=== PATIENT | female | born 1980 | race Caucasian/White ===

== ENCOUNTER → 2019-10-17 09:25 | Outpatient (CLI) | payer BC, SELFPAY ==
[2018-03-14 16:41] VITALS: BMI 26.4
[2019-10-17 11:35] LABS: HIV - WCH Non-Reactive (Nonreactive); Hepatitis B Surface Antigen Non-Reactive (Nonreactive); Hepatitis C Antibody Non-Reactive (Nonreactive)
[2019-10-19 03:07] LABS: Chlamydia By Nucleic Acid AMP Negative (Negative)
[2019-10-19 07:33] LABS: Gonococcus By Nucleic Acid AMP Negative (Negative)
[2019-10-21 21:39] LABS: HPV APTIMA, High Risk Negative (Negative)
[2019-10-24 05:27] LABS: Rapid Plasmin Reagin (RPR) NONREACTIVE (NONREACTIVE)
== END ==
PROVIDERS: Visit Provider Obstetrics & Gynecology
DX: Z11.3 Encounter for screening for infections with a predominantly sexual mode of transmission (principal)
CPT/HCPCS: 36415; 86592; 86703; 86803; 87340; 87491; 87591; 87624; 88175; G0145

== ENCOUNTER 2020-07-30 08:02 | Emergency (ER) | payer BC, SELFPAY ==
[2018-03-14 16:41] VITALS: BMI 26.4
[2020-07-30 08:02] VITALS: BP 150/90; PULSE 104; RESP 16; TEMP 36.4; O2SAT 98; BMI 23.3
--- NOTE | 2020-07-30 08:08 | CT_ITS ---
STUDY: CT CERVICAL SPINE WITHOUT CONTRAST REASON FOR EXAM: Female, 39 years old. Left shoulder and left cervical pain. RADIATION DOSAGE (If Supplied By Facility): CTDIvol = ( 15.82 ) mGy, DLP = ( 317.13 ) mGycm TECHNIQUE: High resolution transaxial imaging was performed without contrast material. Sagittal and coronal images were reconstructed. Individualized dose optimization techniques were used for this CT. COMPARISON: None FINDINGS: Normal craniovertebral junction. Normal anterior atlantoaxial articulation. Normal odontoid process. There is straightening of the normal cervical lordosis. Normal vertebral bodies and posterior osseous elements. C2-3: Normal endplates. Normal disc height and morphology. Normal central canal and intervertebral neuroforamina. C3-4: Normal endplates. Normal disc height and morphology. Normal central canal and intervertebral neuroforamina. C4-5: Normal endplates. Normal disc height and morphology. Normal central canal and intervertebral neuroforamina. C5-6: Normal endplates. Normal disc height and morphology. Normal central canal and intervertebral neuroforamina. C6-7: Normal endplates. Normal disc height and morphology. Normal central canal and intervertebral neuroforamina. C7-T1: Normal endplates. Normal disc height and morphology. Normal central canal and intervertebral neuroforamina. Normal visualized soft tissue structures. CT/Spine Cervical without Contras IMPRESSION: Normal unenhanced CT examination of the cervical spine. Electronically Signed: Jhon Barrios MD at 8:46 EDT , Service support ,
--- NOTE | 2020-07-30 08:09 | EDS_ITS ---
HPI History of Present Illness Chief Complaint: Upper Extremity Injury Informant: patient Onset/Context/Timing Onset: Today Context: Gradual Onset Timing: Continuous Quality of Pain: Burning and Stabbing Current Severity: Moderate Maximum Severity: Severe Associated Symptoms Associated Symptoms: Positive for Parasthesia; Negative for Weakness and Loss of Funtion Narrative Narrative: The patient is an otherwise healthy 39-year-old female presents to the emergency department with left-sided neck and shoulder pain. The patient states that she has had pain in this area for the past few days. She states she just felt like her neck had a crack. She states when she woke up this morning, she had a burning pain in the posterior left shoulder that goes down the arm. She denies any weakness. She states it hurts to move and twist. She denies any trauma. She has not found anything that improves the symptoms. She is not had visual change, vertiginous symptoms, trouble with speech, or change in gait. PFSH PFSH Home Medications cyclobenzaprine 10 mg PO TID PRN #20 tablet 07/30/20 [Rx Last Taken Unknown] hydrocodone-acetaminophen 1 tab PO Q6H PRN PRN 3 Days #10 tablet 07/30/20 [Rx Last Taken Unknown] methylprednisolone 4 mg PO UD #1 box 07/30/20 [Rx Last Taken Unknown] Allergy/AdvReac Type Severity Reaction Status Date / Time venom-honey bee Allergy Other Verified 07/30/20 08:04 [bee venom (honey bee)] Social History Smoking Status: Current every day smoker tobacco type: cigarettes alcohol intake: current ROS ROS ED Constitutional Constitutional ED: Denies chills or fever(s) Eyes Eyes: Denies blurry vision or change in vision ENT ENT ED: Denies ear pain or sore throat Cardiovascular Cardiovascular: Denies chest pain or palpitations Respiratory/Chest Respiratory/Chest: Denies cough, dyspnea or dyspnea on exertion Gastrointestinal Gastrointestinal: Denies abdominal pain, nausea or vomiting Genitourinary Genitourinary ED: Denies dysuria or urinary frequency Musculoskeletal Musculoskeletal: Reports neck pain; Denies arthralgias or myalgias Integumentary Denies rash Neurologic Neurologic: Reports paresthesias; Denies headache(s) Psychiatric Psychiatric: Denies anxiety or depression Endocrine Endocrinology: Denies polydipsia or polyuria Allergic/Immunologic Allergic/Immunologic ED: Denies urticaria EXAM Physical Exam Const Vital Signs: 07/30/20 08:02 Temperature 97.5 F L Temperature Source Temporal Pulse Rate 104 H Respiratory Rate 16 Blood Pressure 150/90 H Blood Pressure Mean 110 Pulse Ox 98 Oxygen Delivery Method Room Air Positive well nourished and well developed General Appearance ED: well developed HEENT Reports normocephalic, head/scalp atraumatic and moist mucous membranes normocephalic and atraumatic Eyes PERRL and EOMs intact bilaterally Neck full ROM, no lymphadenopathy and supple Neck Narrative: Tenderness over the left lateral paraspinal muscular. Tendernes s into the rhomboid. Normal pulses. Normal reflexes of the upper extremity. General: tenderness Chest Wall inspection of chest normal Resp normal respiratory effort and clear to auscultation bilaterally Cardio regular rate, regular rhythm and no murmurs GI normal to inspection, nondistended, normoactive bowel sounds Palpation: Negative for tender, guarding or rebound tenderness present Back/Spine no CVA tenderness Cervical Spine: Negative for cervical spine tenderness Thoracic Spine / Upper Back: Negative for thoracic spinal tenderness Extremity normal to inspection General Extremety ED: Negative for tenderness Neuro oriented x3 and CN's II-XII intact bilaterally Neuro Narrative: No focal deficits appreciated. Sensorium / Orientation: alert Psych mental status grossly normal Skin no rashes or lesions noted, no wounds and skin turgor normal MDM MDM MDM Narrative Medical decision making narrative: The patient presents with radicular type pain from the left posterior neck down to the shoulder. She has no weakness. She has normal reflexes and normal pulses. I did obtain CT imaging. There is no fracture dislocation. The patient was treated with IM medications with some improvement. At this point, I do feel that she is safe outpatient therapy. My suspicion is that she likely has a pinched nerve causing radicular symptoms down the arm. I am going to treat her with Medrol, short course of analgesics, and antispasmodics. She will be given outpatient spine surgery follow-up. She is comfortable with this plan of care. Impression Left cervical radiculopathy Discharge Plan Triage Chief Complaint: Upper Extremity Injury ED Provider: Phoenix Contreras Dx/Rx/DC Orders Clinical Impression: Cervical radicular pain Instructions: ED Radiculopathy, Cervical Prescriptions: New cyclobenzaprine [cyclobenzaprine] 10 MG tablet 10 mg PO TID PRN (Reason: Muscle Spasm) Qty: 20 RF: 0 hydrocodone-acetaminophen [hydrocodone-acetaminophen] 1 TABLET tablet 1 tab PO Q6H PRN PRN (Reason: Pain) 3 Days Qty: 10 RF: 0 methylprednisolone [methylprednisolone] 4 MG tablets,dose pack 4 mg PO UD Qty: 1 RF: 0 Primary Care Provider: Care Physician,No Primary Referrals: Mg Boykin DO [STAFF PHYSICIAN] - 3-5 Days Care Physician,No Primary [Primary Care Provider] -
[2020-07-30] MEDS: Ketorolac 60 MG/2 ML Vial IM (08:16)
[2020-07-30] MEDS: Morphine 4 MG/ML Syringe IM (08:16)
[2020-07-30] MEDS: Orphenadrine 60 MG/2 ML Ampul IM (08:16)
[2020-07-30 08:59] VITALS: PULSE 77; RESP 15; O2SAT 100
--- NOTE | 2020-07-30 09:00 | ED.RN ---
PT WAS OBSERVED FOR SHOT TIME FOR GREATER THAN 15 MINUTES NO REACTION NOTED BY THIS RN, PT D/C.
== END 2020-07-30 09:01 | disposition home or self-care (01) ==
PROVIDERS: Emergency Provider Emergency Medicine
DX: M54.12 Radiculopathy, cervical region (principal); F17.210 Nicotine dependence, cigarettes, uncomplicated; Z79.52 Long term (current) use of systemic steroids; Z79.899 Other long term (current) drug therapy
CPT/HCPCS: 72125; 96372; 99282

== ENCOUNTER → 2020-10-12 16:05 | Outpatient (CLI) | payer BC, SELFPAY ==
[2020-08-10 08:45] VITALS: BMI 23.3
--- NOTE | 2020-10-12 16:06 | MRI_ITS ---
STUDY: MRI CERVICAL SPINE WITHOUT CONTRAST REASON FOR EXAM: Female, 39 years old. pain neck and left shoulder/arm TECHNIQUE: Standardized fat and water weighted pulse sequences were obtained in the sagittal and axial planes. COMPARISON: CT scan of 07/30/2020 and plain film study from 08/10/2020 FINDINGS: Normal foramen magnum and brainstem-cervical cord junction. Normal craniovertebral junction. Normal anterior atlantoaxial articulation. Normal odontoid process. There is reversal of the normal cervical lordosis. Normal vertebral bodies and posterior osseous elements. C2-3: Normal endplates. Normal disc height, signal and morphology. Normal central canal and intervertebral neural foramina. C3-4: Normal endplates. Normal disc height, signal and morphology. Normal central canal and intervertebral neural foramina. C4-5: Left paracentral disc herniation at C4-5 impinging on the left C5 nerve root. Normal intervertebral neural foramina. C5-6: Normal endplates. Normal disc height, signal and morphology. Normal central canal and intervertebral neural foramina. C6-7: Normal endplates. Normal disc height, signal and morphology. Normal central canal and intervertebral neural foramina. C7-T1: Normal endplates. Normal disc height, signal and morphology. Normal central canal and intervertebral neural foramina. Normal cervical cord. Normal visualized soft tissue structures. MRI/Spine Cervical (Routine) IMPRESSION: Left paracentral disc herniation at C4-5 impinging on the left C5 nerve root. Electronically Signed: Linda Winslow MD at 7:45 EDT Tel , Service support ,
== END ==
PROVIDERS: Referring Provider Orthopaedic Surgery; Visit Provider Orthopaedic Surgery
DX: M50.20 Other cervical disc displacement, unspecified cervical region (principal); M54.12 Radiculopathy, cervical region
CPT/HCPCS: 72141

== ENCOUNTER 2023-10-16 14:05 | Emergency (ER) | payer BC, SELFPAY ==
[2023-10-16 14:05] VITALS: BP 124/77; PULSE 81; RESP 16; TEMP 36.8; O2SAT 100; BMI 25.0
== END 2023-10-16 18:47 | disposition left against medical advice (07) ==
LOC: ED 19:05
PROVIDERS: PCP Family Medicine
DX: Z53.21 Procedure and treatment not carried out due to patient leaving prior to being seen by health care provider (principal)

== ENCOUNTER 2023-10-17 07:30 | Emergency (ER) | payer BC, SELFPAY ==
[2023-10-17 07:31] VITALS: BP 148/83; PULSE 91; RESP 16; TEMP 36.5; O2SAT 98
[2023-10-17 07:34] VITALS: BMI 24.7
--- NOTE | 2023-10-17 07:58 | EDS_ITS ---
HPI History of Present Illness Chief Complaint: Laceration [facility] Medical History (Updated 10/17/23 @ 08:[address] Cedric Hedrick, DO) Foreign body finger Paronychia of right middle finger Acute conjunctivitis, left eye No active medical problems Home Medications ?Medication ?Instructions ?Recorded ?Last Taken ?Type doxycycline monohydrate 100 mg 100 mg PO DAILY 10/17/23 Unknown History tablet (Avidoxy) Allergy/AdvReac Type Severity Reaction Status Date / Time venom-honey bee (bee venom Allergy Other Verified 10/16/23 14:09 (honey bee)) Surgical History Hx of foot surgery Hx of appendectomy Social History Smoking Status: Current every day smoker tobacco type: cigarettes alcohol intake: current EXAM Physical Exam Const Vital Signs: 10/17/23 07:31 Temperature 97.7 F L Temperature Source Temporal Pulse Rate 91 Respiratory Rate 16 Blood Pressure 148/83 H Blood Pressure Mean 104 Pulse Ox 98 Oxygen Delivery Method Room Air MDM MDM MDM Narrative Medical decision making narrative: HISTORY OF PRESENT ILLNESS: 42 F here with laceration. 42-year-old female presents with concern for infection of the right middle finger after having surgery. Notes she removed her dressing on Monday (3 days ago) she noted the wound was open. She know she called her surgeon who told her to come to the ED to have a resutured. She denies fever, vomiting, chills. Denies drainage, redness. Notes the wound looks essentially the same as before she had the surgery. She is very upset because this been going on since June. She notes she has doxycycline but has not started taking it because her surgeon initially told her not to take it and then this morning told her to take it. She denies loss of sensation, movement,. Denies any immunocompromising state such as diabetes, renal failure, liver failure, chemotherapy. REVIEW OF SYSTEMS: Pertinent positives: laceration Pertinent negatives: fever, chills, PHYSICAL EXAM: Nursing triage notes reviewed, Vital signs reviewed Constitutional: please see mdm Neuro: Intact 5/5 strength with ok sign (median), intact finger abduction (ulnar) intact wrist extension (radial n). Intact sensation in the radial, ulnar, and median nerve distributions. Skin: Chronic appearing ulceration noted to the palmar aspect of the third digit MEDICAL DECISION MAKING: Chief Complaint: Laceration possible postop infection External records reviewed: Reviewed [facility]. No notes noted including sink from hand surgery Factors affecting care: Chronic paronychia MDM Narrative: Patient was hemodynamically stable, afebrile and nontoxic-appearing. Exam with palmar ulceration and chronic appearing wound to the distal third digit. Right upper extremity is neurovascularly intact. No redness no purulence no warmth. No signs of active infection. There is no obvious indication for suture repair. No clinical evidence of active infection. Wound appears chronic. Patient is prescribed doxycycline encouraged her to continue to take this. Encouraged her to follow with her surgeon. Wound care was provided. Strict return precautions were discussed. The patient and/or family, caregivers express understanding. The patient and/or family, caregivers agrees with the plan. Shared decision making: I will have a discussion with the patient and or visitors regarding risk/benefits of further testing or admission. They will be made aware of of the risk/benefits inherent in this decision they will be given the opportunity to voice understanding. Total critical care time today provided was at least 0 minutes. This excludes separately billable procedures. Critical care time (if documented) is secondary to the patient having high probability of clinically significant/life threatening deterioration in the patient's condition which required my urgent intervention. Impression: 1. Wound dehiscence 2. Chronic wound of the third digit Dispo: Discharge home This note was generated with [employer] dictation software. It may contain incorrect words, spelling, and punctuation that were not noted in review of the chart prior to signing. Discharge Plan Triage Chief Complaint: Laceration ED Provider: Cedric Hedrick Dx/Rx/DC Orders Clinical Impression: Chronic wound Instructions: Changing Dressing Dc Prescriptions: No Action doxycycline monohydrate [Avidoxy] 100 mg tablet 100 mg PO DAILY Primary Care Provider: Jona Oswald Referrals: Jona Oswald MD [Primary Care Provider] - Activity Restrictions/Additional Instructions: Thank you for trusting us with your care today! Please take Tylenol (2 pills, 650 mg), ibuprofen (2 pills, 400 mg) every 6 hours as needed for pain and fever control. Please return to the emergency department if your symptoms change or worsen. Please follow with your Surgery for further outpatient evaluation and management. Print Language: Vietnamese Disposition Disposition: Home, Self Care
== END 2023-10-17 08:50 | disposition home or self-care (01) ==
PROVIDERS: Emergency Provider Emergency Medicine; PCP Family Medicine; Visit Provider Emergency Medicine
DX: T81.31XA Disruption of external operation (surgical) wound, not elsewhere classified, initial encounter (principal); F17.210 Nicotine dependence, cigarettes, uncomplicated; L03.011 Cellulitis of right finger; Y83.9 Surgical procedure, unspecified as the cause of abnormal reaction of the patient, or of later complication, without mention of misadventure at the time of the procedure
CPT/HCPCS: 99282

== ENCOUNTER → 2024-03-13 | Outpatient (CLI) | payer BC, SELFPAY ==
[2024-03-16 13:07] LABS: HPV APTIMA, High Risk Negative (Negative)
== END | disposition home or self-care (01) ==
LOC: LABSPEC 10:35
PROVIDERS: PCP Family Medicine; Referring Provider Nurse Practitioner Women's Health; Visit Provider Nurse Practitioner Women's Health
DX: Z12.4 Encounter for screening for malignant neoplasm of cervix (principal)

== ENCOUNTER → 2024-03-18 | Outpatient (CLI) | payer BC, SELFPAY ==
--- NOTE | 2024-03-18 14:17 | US_ITS ---
EXAM: US PELVIS TRANSABDOMINAL AND TRANSVAGINAL, COMPLETE CLINICAL INDICATION: enlarged uterus -- prominent anteriorly TECHNIQUE: Transabdominal and transvaginal pelvic ultrasound was performed with grayscale and color Doppler imaging. Transvaginal imaging was used for better evaluation of the endometrium and adnexa. COMPARISON: CT abdomen and pelvis, 11/22/2010 FINDINGS: UTERUS/CERVIX: Intramural fibroid measuring 9.2 cm. Intramural fibroid measuring 1.9 cm. The endometrium measures 5 mm. Anteverted. The uterus measures 10.2 x 9.2 x 4.3 cm. RIGHT OVARY: No significant abnormality. Blood flow is present in the right ovary. The right ovary measures 2.8 x 2.3 x 2.3 cm. LEFT OVARY: No significant abnormality. Blood flow is present in the left ovary. The left ovary measures 4.4 x 3.1 x 1.7 cm. FREE FLUID: None. BLADDER: Normal as visualized. Wall is normal thickness for degree of distention. US/Pelvic w/ Transvaginal IMPRESSION: Fibroid uterus. The largest measures 9.2 cm. Electronically Signed: Chaka Johnson DO at 22:50 EST ,
--- NOTE | 2024-03-18 14:17 | BI_ITS ---
MAMMOGRAPHY - BILATERAL SCREENING REASON FOR EXAM: Female, 43 years old. Routine annual screening examination. PERTINENT HISTORY: Non-contributory. TECHNIQUE: Digital bilateral breast hira (3D mammographic acquisition) in the CC and MLO projections. 2-D mediolateral oblique (MLO) and craniocaudad (CC) views of both breasts were obtained. CAD: Full Field Digital Mammography with Computer Added Detection was performed. COMPARISON: None. Baseline examination. FINDINGS: Breast Composition: The breasts are extremely dense, which lowers the sensitivity of mammography. There are no dominant masses or suspicious calcifications. No other significant abnormalities are identified. BI/SCRN MAMM (CAD)W/HIRA BILAT IMPRESSION: Negative screening mammogram. Yearly followup mammogram recommended. (A) ASSESSMENT CATEGORY: BIRADS Category 1: Negative. A letter regarding these results will be sent to the patient by the facility within 30 days. Approximately 10% of breast cancers are not detected by mammography. A normal mammogram should not delay biopsy of a clinically suspicious abnormality. [id number] Electronically Signed: Jhon Barrios MD at 8:59 EST ,
== END | disposition home or self-care (01) ==
PROVIDERS: PCP Family Medicine; Referring Provider Nurse Practitioner Women's Health; Visit Provider Nurse Practitioner Women's Health
DX: Z12.31 Encounter for screening mammogram for malignant neoplasm of breast (principal); N85.2 Hypertrophy of uterus
CPT/HCPCS: 76830; 76856; 77063; 77067

== ENCOUNTER → 2024-03-22 | Outpatient (CLI) | payer BC, SELFPAY ==
--- NOTE | 2024-03-22 16:30 | EMB_PTH ---
PATIENT: GRECIA RENEE LOC: [facility] U#:[id number] AGE/SX: 43/F ROOM: RE03/22/[address]: Dr. Tawana Cyr DO : 1980 BED: DIS: 03/22/2024 SPEC #: [id number] RECD: 03/22/24 17:10 STATUS: ADRIANE KELSEY #: [id number] RICCO: 03/22/24 16:[address]: Tawana Cyr DEPT: SURGICAL PATHOLOGY RECD BY: Tracie Poon ENTERED: 03/25/24 09:56 SP TYPE: ENDOM BX/C YVONNE DR: Dr. Jona Oswald MD Tissues: Endometrium, NOS Procedures: Surgery Specimen Level IV HEADER OPERATION: Endometrial biopsy PRE-OP DIAGNOSIS: Menorrhagia TISSUE SUBMITTED: Endometrial lining MICROSCOPIC DIAGNOSIS Endometrial biopsy: Secretory endometrium with extensive glandular and stromal breakdown. mr 03/26/2024 MICROSCOPIC DESCRIPTION Slides are reviewed. GROSS DESCRIPTION Received is one container labeled with the patient's name and not further designated. The specimen consists of multiple irregular fragments of mcguire mucoid tissue mixed with hemorrhagic tissue that in aggregate measure 3 x 2.5 x 0.1 cm. The specimen is totally submitted in one cassette. 03/25/2024 TC:5 CPT:95393
== END | disposition home or self-care (01) ==
LOC: BWCLAB 11:32
PROVIDERS: PCP Family Medicine; Referring Provider Obstetrics & Gynecology; Visit Provider Obstetrics & Gynecology
DX: N92.0 Excessive and frequent menstruation with regular cycle (principal)
CPT/HCPCS: 36415; 84443; 88305

== ENCOUNTER 2024-05-21 05:26 | Day surgery (SDC) | payer BC, SELFPAY ==
--- NOTE | 2024-05-13 06:53 | EKG12_ITS ---
Test Reason : PREOP Blood Pressure : */* mmHG Vent. Rate : 59 BPM Atrial Rate : 59 BPM P-R Int : 120 ms QRS Dur : 82 ms QT Int : 400 ms P-R-T Axes : 44 78 52 degrees QTcB Int : 396 ms Sinus bradycardia Otherwise normal ECG Confirmed by ADRIÁN TAYLOR, QUINN ([id number]), rewrite editor OLGA REY ([id number]) on 05/13/2024 1:42:05 PM Referred By: Tawana Cyr Confirmed By: QUINN SAMPSON MD
[2024-05-13 07:24] LABS: Hematocrit 41.3 % (37-47); Hemoglobin 13.7 g/dL (12.0-15.0); Mean Corp Hgb Conc 33.2 g/dL (32-36); Mean Corpuscular Hgb 32.7 pg (27.0-32.0); Mean Corpuscular Volume 98.6 fL (81-99); Platelet Count 226 K/mm3 (150-450); RBC Distribution Width CV 13.1 % (11.6-14.6); Red Blood Count 4.19 M/mm3 (4.2-5.4); White Blood Count 7.8 K/mm3 (4.4-11.0)
[2024-05-13 13:29] LABS: Magnesium 2.2 mg/dL (1.5-2.2)
[2024-05-21] VITALS (10 sets, daily range): BP systolic 116–128; BP diastolic 54–85; PULSE 67–90; RESP 15–18; TEMP 36.3–36.6; O2SAT 100; BMI 23.1
[2024-05-21 06:00] LABS: Internal QC Validated? YES +Cl - CLEAR BKGD; Pregnancy, Urine Negative Negative
[2024-05-21] MEDS: Magnesium 1 GM over 15 mins IV (06:06)
[2024-05-21] MEDS: Celecoxib 200 MG Capsule 400 MG PO (06:26)
[2024-05-21] MEDS: Acetaminophen 500 MG Tablet 1000 MG PO (06:26)
[2024-05-21] MEDS: Gabapentin 600 MG Tablet PO (06:27)
[2024-05-21] MEDS: Scopolamine 1mg/72hr Patch 1 PATCH TD (06:28)
[2024-05-21] MEDS: Phenazopyridine 95 MG Tablet 190 MG PO (06:29)
[2024-05-21] MEDS: 0.9% Normal Saline (1000mL) 1,000 ML 15 ML IV (06:35)
--- NOTE | 2024-05-21 06:37 | PCM.PRE.AN2 ---
ASA Classification* ASA Classification ASA Classification: 2 Assessment & Plan Anesthesia* Anesthesia Assessment Anesthesia Assessment: Discussed sedation and/or anesthesia options, risks, benefits, and alternatives with patient/parents/legal guardian/POA. Questions invited. The patient/parents/legal guardian/POA seems to understand and agrees to proceed with anesthesia plan. Reviewed the physical assessment, medical history, allergy history and patient home medications list prior to surgery/procedure/anesthetic and documented any changes. Performed airway and anesthesia risk assessments. Anesthesia Type Anesthesia Type: General History Source History Obtained from:: Patient and Chart Anesthesia Focused Assessment* Temperature: 97.3 F Pulse Rate: 67 Blood Pressure: 117/84 Respiratory Rate: 18 Pulse Ox: 100 Oxygen Delivery Method: Room Air Airway Assessment Mouth opens: >3 cm Mallampati Score: III Teeth Condition: Intact Neck Range of motion (ROM): Full ROM Focused Labs Anesthesia Preop lab: CBC WBC 7.8 K/mm3 (4.4-11.0) 05/13/24 07:15 05/13/24 RBC 4.19 M/mm3 (4.2-5.4) L 05/13/24 07:15 05/13/24 Hgb 13.7 g/dL (12.0-15.0) 05/13/24 07:15 05/13/24 Hct 41.3 % (37-47) 05/13/24 07:15 05/13/24 Plt Count 226 K/mm3 (150-450) 05/13/24 07:15 05/13/24 CHEMISTRY Magnesium 2.2 mg/dL (1.5-2.2) 05/13/24 07:15 05/13/24 TSH 1.360 uIU/mL (0.358-3.740) 03/22/24 11:32 03/22/24 COAG Urine Test Negative Negative 05/21/24 05:42 05/21/24 Pre-Assessment Diagnosis/Proposed Procedure Planned Operative Procedure(s): (B) Lap Robotic Hysterectomy Kerwin Salping, Cystoscopy Anesthesia History Anesthesia History - prepress specialist: Anesthesia History - prepress specialist Hx Hospitalization No 05/07/24 09:05 Any Problems With Anesthesia No 05/07/24 09:05 Cholinesterase deficiency No 05/07/24 09:05 You/Your Family Experience No 05/07/24 09:05 fever (hyperthermia) with Relationship Recent Exposure to Contagious No 05/21/24 06:14 Disease Does patient have nerve No 05/07/24 09:05 stimulator Patient instructed to have device shut off --Does patient have Pacemaker No 05/21/24 06:14 or ICD? When Was Last Pacemaker Check QUESTION #4 FULL TEXT: You/Your Family Experience fever (hyperthermia) with Anesthesia Last Oral Intake Last Oral intake: Last Oral Intake NPO since 03:05/21/24 06:14 Meds taken in AM with sips of No 05/21/24 06:14 water? Meds patient instructed to take am of surgery Any additional information?: Yes NPO since: : (Patient had preop Ensure at 3:30 AM.) PONV PONV - prepress specialist: PONV - prepress specialist Female Yes 05/07/24 09:05 HX of Motion Sickness No 05/07/24 09:05 HX of N/V After Surgery No 05/07/24 09:05 Non-Smoker No 05/07/24 09:05 Duration of Surgery greater Yes 05/07/24 09:05 than 60 minutes Number of Risk Factors 2 05/07/24 09:05 PONV Score Moderate Risk 05/07/24 09:05 Height & Weight Height & Weight: Anesthesia: Height & Weight Height 5 ft 4 in 05/21/24 06:14 Weight: 61 kg 05/21/24 06:14 Body Mass Index (BMI) 23.1 05/21/24 06:14 Respiratory Assessment Respiratory Assessment - prepress specialist: Respiratory Tract Infection Hx - prepress specialist Hx Respiratory Tract Infection No 05/07/24 09:05 STOP Sleep Apnea STOP Sleep Apnea - prepress specialist: STOP Sleep Apnea - prepress specialist Hx Hypertension No 05/07/24 09:05 Hx Sleep Apnea No 05/07/24 09:05 CPAP BIPAP Do you snore loudly (louder No 05/07/24 09:05 than talking or can be heard Do you often feel tired/ No 05/07/24 09:05 fatigued/ sleepy during daytime? Has anyone observed you stop No 05/07/24 09:05 breathing during sleep? STOP Results Negative 05/07/24 09:05 QUESTION #5 FULL TEXT : Do you snore loudly (louder than talking or can be heard through closed doors)? 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 Specify any problems Hx of Preganancy in last 3 No 05/07/24 09:05 Months Nurse Filling Out Transfusion VCHRISTIN 05/07/24 09:05 & Questions: Date: 05/07/24 05/07/24 09:05 Time: 09:06 05/07/24 09:05 Patient unable to answer at this time (ie. confused, unrespo /Reproduction History /Reproductive History - prepress specialist: /Reproductive Hx- prepress specialist Hx Now No 05/07/24 09:05 Gestational Age (in weeks): EDC: Hx Hx Para Hx Section SAB No 05/13/24 11:24 Active Medications Active Medications: Current Medications Generic Name Dose Route Start Last Admin Trade Name Freq PRN Reason Stop Dose Admin Acetaminophen 1,000 mg 05/21/24 07:30 05/21/24 06:26 Acetaminophen 500 Mg Tablet PO 05/21/24 07:31 1,000 mg PREOP ONE Administration Celecoxib 400 mg 05/21/24 07:30 05/21/24 06:26 Celecoxib 200 Mg Capsule PO 05/21/24 07:31 400 mg X1 ONE Administration Gabapentin 600 mg 05/21/24 07:30 05/21/24 06:27 Gabapentin 600 Mg Tablet PO 05/21/24 07:31 600 mg PREOP ONE Administration Lactated Ringer's 1,000 mls @ 40 mls/hr 05/21/24 07:30 IV .Q25H CORNEL Cefazolin Sodium 2 gm/ N/A 20 mls @ 400 mls/hr 05/21/24 07:30 IV 05/21/24 07:32 PREOP ONE Lactated Ringer's 1,000 mls @ 70 mls/hr 05/21/24 07:30 IV .[id number] CORNEL Magnesium Sulfate 1 gm/ 102 mls @ 408 mls/hr 05/21/24 07:30 05/21/24 06:29 Dextrose IV 05/21/24 07:44 Infused X1 ONE Infusion Sodium Chloride 1,000 mls @ 15 mls/hr 05/21/24 06:35 05/21/24 06:35 IV 15 mls/hr .Q48H CORNEL Administration Insulin Human Lispro 0 unit 05/21/24 07:30 Insulin Lispro 100 Unit/Ml Insuln.Pen SC Q4H PRN PRN BG >/= 180, SEE PROTOCOL Protocol Ondansetron HCl 4 mg 05/21/24 07:30 Ondansetron 4 Mg/2 Ml Vial IV 05/21/24 07:31 X1 ONE Phenazopyridine HCl 190 mg 05/21/24 07:30 05/21/24 06:29 Phenazopyridine 95 Mg Tablet PO 05/21/24 07:31 190 mg X1 ONE Administration Scopolamine HBr 1 patch 05/21/24 07:30 05/21/24 06:28 Scopolamine 1mg/72hr Patch TD 05/21/24 07:31 1 patch X1 ONE Administration PFSH Medical History Wears contact lenses Wears glasses MRSA infection Alcohol use Migraine headache Injury of head and neck Smoker Paronychia of right middle finger Home Medications ?Medication ?Instructions ?Recorded ?Last Taken ?Type multivitamin 1 tab PO QAM 03/13/24 05/19/24 History Allergy/AdvReac Type Severity Reaction Status Date / Time venom-honey bee (bee venom Allergy Other Verified 05/21/24 06:04 (honey bee)) Surgical History Hx of foot surgery Hx of appendectomy Social History household members: spouse current occupational status: employed current occupation: [employer] Smoking Status: Current every day smoker tobacco type: cigarettes alcohol intake: current substance use type: does not use seatbelt use: always do you feel safe at home: Yes additional social history: Single Review of Systems (Anesthesia) ROS Narrative System reviewed and no additional complaints, except as documented.
[2024-05-21 07:03] LABS: Bedside Glucose 84 mg/dL (74-106)
--- NOTE | 2024-05-21 07:10 | DCINST_ITS ---
Discharge Instructions Diet Discharge Diet: No restrictions DC O2, CPAP, BIPAP needs Home O2 Discharge instructions: No Dressing / Incision Discharge Activity: May Shower May resume sexual activity in: 8 weeks Weight Bearing Status: Full weight bearing Lifting Restrictions: 10 pounds for 2 weeks Dressing / Incision Call your doctor if your incision/area has: Continuous Slow Oozing, Sudden Increased Bleeding, Increased Pain/ Swelling, Increased Redness and Foul Smelling Discharge Call your doctor if you observe: Fever of 101 or Higher, Using more than 1 pad per hour, Shortness of breath, Chest pain and Uncontrolled pain Suture Line Care: Avoid Pulling/Pushing and Avoid Pinching/Bending Remove Dressing in: 1 week (if present) Cleanse incision/area with: Soap & Water and Keep Dressing Clean & Dry Follow Up Care Please Follow Up With: Tawana Cyr DO When: Call to make an appointment with your doctor for a postop visit in 2 and 6 weeks Test Results: Test results from this visit will be discussed in further detail at your follow- up appointment, if applicable. Discharge Plan Admission Primary Reason for Your Visit: hysterectomy Attending Provider: Tawana Cyr Primary Care Provider: Jona Oswald Instructions Print Language: Maltese Discharge Orders/Prescriptions Prescriptions: New oxycodone-acetaminophen [Percocet] 5-325 mg tablet 1 tab PO Q4H PRN (Reason: pain) 7 Days Qty: 20 0RF ibuprofen 800 mg tablet 800 mg PO Q8H PRN (Reason: pain) Qty: 30 0RF No Action multivitamin Tablet 1 tab PO QAM Other Ambulatory Orders: 12 Lead EKG (Routine) Timeframe: [id number] Location: None Selected Ordered By: Dr. Tawana Cyr Referrals / Follow Up: Jona Oswald MD [Primary Care Provider] - Disposition Disposition (needs filled in before D/C Order can be placed): Home, Self Care
--- NOTE | 2024-05-21 07:10 | PCM.HP.BLA ---
History and Physical Date of Admission: 05/21/24 Intake Vital Signs 03/22/2509:30 05/13/2510:22 05/13/2510:24 Height 5 ft 4 in 5 ft 4 in 5 ft 4 in Weight: 138 lb 8 oz 137 lb 4 oz BMI 23.8 23.6 BP 131/79 H 109/75 Intake Visit Reasons: TRHBS Cysto Occupational Therapy Department Chair Required: No Is patient in pain?: No Allergies venom-honey bee (bee venom (honey bee)) Allergy (Verified 05/13/24 11:22) Other Medications ?Medication ?Instructions ?Recorded ?Confirmed ?Type multivitamin 1 tab PO QAM 03/13/24 05/13/24 History Post menopausal: No Patient : No : No PFSH Medical History Wears contact lenses Wears glasses MRSA infection Alcohol use Migraine headache Injury of head and neck Smoker Paronychia of right middle finger Surgical History Hx of foot surgery Hx of appendectomy Social History household members: spouse current occupational status: employed current occupation: [employer] Smoking Status: Current every day smoker tobacco type: cigarettes alcohol intake: current substance use type: does not use seatbelt use: always do you feel safe at home: Yes additional social history: Single HPI TRHBS Cysto Details: GRECIA RENEE is a 43 year old G0 who presents for discussion about heavy menses and finding of fibroid uterus. After she was given the information from Eva recently, she has decided that she just wants a hysterectomy. EMB was benign, Ultrasound shows the following: FINDINGS: UTERUS/CERVIX: Intramural fibroid measuring 9.2 cm. Intramural fibroid measuring 1.9 cm. The endometrium measures 5 mm. Anteverted. The uterus measures 10.2 x 9.2 x 4.3 cm. RIGHT OVARY: No significant abnormality. Blood flow is present in the right ovary. The right ovary measures 2.8 x 2.3 x 2.3 cm. LEFT OVARY: No significant abnormality. Blood flow is present in the left ovary. The left ovary measures 4.4 x 3.1 x 1.7 cm. FREE FLUID: None. BLADDER: Normal as visualized. Wall is normal thickness for degree of distention. US/Pelvic w/ Transvaginal IMPRESSION: Fibroid uterus. The largest measures 9.2 cm. History 0 Elective abortions Hx Para Spontaneous abortions Hx # Term Pregnancies Ectopic pregnancies Hx # Pregnancies Multiple births # of living children ROS Const ROS Unobtainable: All systems reviewed & are unremarkable except as noted in H Resp Resp: Reports system reviewed and no additional complaints, except as documented; Denies cough GI GI: Reports as per HPI Psych Psych: Reports system reviewed and no additional complaints, except as documented Exam Const General: cooperative, healthy appearing, comfortable and no acute distress Resp Effort & Inspection: normal respiratory effort Skin General: no rashes or lesions noted Psych Appearance: grossly normal Speech and Movement: speech and movement normal Coding Level of Care Code Off vis,est,level 4 Diagnoses Uterine fibroid D25.9 Pelvic pain R10.2 Enlarged uterus N85.2 Assessment and Plan Assessment and Plan (1) Uterine fibroid: Status: Acute Comment: 9cm (2) Pelvic pain: Status: Acute (3) Enlarged uterus: Status: Acute Comment: prominent anteriorly/US Plan After discussing the patient's diagnosis and treatment plan options, patient wishes to proceed with surgical management. I have discussed with the patient the risks, benefits, and alternatives of the procedure which include but are not limited to risks of anesthesia, bleeding, infection, possible damage to bowel, bladder, or surrounding vasculature which could lead to additional surgery to evaluate any complications. Patient agrees to procedure and wishes to proceed. ACOG/uptodate references given for additional information regarding procedure. Plan for total robotic hysterectomy, BS, cystoscopy
--- NOTE | 2024-05-21 07:30 | UT_PTH ---
PATIENT: GRECIA RENEE LOC: [facility] [place][id number] AGE/SX: 43/F ROOM: RE05/21/[address]: Dr. Tawana Cyr DO : 1980 BED: DIS: 05/21/2024 SPEC #: [id number] RECD: 05/21/24 10:30 STATUS: ADRIANE COLE #: [id number] RICCO: 05/21/24 07:[address]: Tawana Cyr DEPT: SURGICAL PATHOLOGY RECD BY: Art Hastings ENTERED: 05/21/24 10:30 SP TYPE: UTERUS OTHR DR: Dr. Jona Oswald MD Tissues: A - Uterus, NOS Procedures: Surgery Specimen Level V HEADER OPERATION: ERAS, laparoscopic robotic hysterectomy, bilateral salpingectomy, cystoscopy PRE-OP DIAGNOSIS: Uterine fibroid, pelvic pain, enlarged uterus TISSUE SUBMITTED: A- Uterus, cervix, bilateral fallopian tubes MICROSCOPIC DIAGNOSIS A. UTERUS, CERVIX, BILATERAL FALLOPIAN TUBES, HYSTERECTOMY AND BILATERAL SALPINGECTOMY: * CERVIX: MILD HYPERKERATOSIS. * ENDOMETRIUM: SECRETORY PHASE. * MYOMETRIUM: LEIOMYOMA, FRAGMENTED. * BILATERAL FALLOPIAN TUBES: NO SPECIFIC PATHOLOGIC CHANGE. MICROSCOPIC DESCRIPTION Slides are reviewed. GROSS DESCRIPTION Received fresh labeledShawn Marlena and designated uterus cervix bilateral fallopian tubes, is a uterus and cervix received disrupted into multiple ragged irregularly-shaped fragments and two separate segments of fallopian tube. Fragments of uterus and cervix aggregate to 509 g, and 16.5 x 15.2 x 9.2 cm. The intact areas of serosa are pink to red-brown, focally hemorrhagic, and smooth. The cervix measures 2.9 cm in diameter by 3.4 cm in length. The cervical mucosa is mcguire to red-brown, focally hemorrhagic, and slightly wrinkled. The endocervix is slightly granular, slightly folded, and there is a sharp squamocolumnar margin junction. The intact areas of endometrium are mcguire-red, slightly granular, and measure up to 0.2 cm thick. Fragments of myometrium are pink-mcguire and coarsely trabecular. Within the myometrial fragments and within the aggregate tissue are multiple mcguire, disrupted, rubbery tissue fragments with the largest intact fragment measuring 10.2 cm. Sectioning through the rubbery fragments show uniform pale-mcguire, whorled cut surfaces with no areas of hemorrhage or necrosis seen. The two red-mcguire unoriented segments of fallopian tube measure 4.6 cm long by 0.5 cm in diameter, and 4.1 cm long by 0.5 cm in diameter. Sectioning shows an unremarkable lumen and unremarkable fimbria.Cassette Summary:U9-0-gyoqvfxh sections of cervix and endocervixA3-three sections of possible weyxpjfmkgoX8-1-ejqybduo of separate nodular tissue fragmentsA6-three sections of largest intact nodular sbggfhfpL0-7-kyrzhxlc of two fallopian tubes to include 2 cross-sections and bisected fimbria per cassette 05/21/2024 CPT:59272
[2024-05-21] MEDS: Cefazolin 2 GM in Syringe 10 ML IV (07:36)
[2024-05-21] MEDS: Bupivacaine 0.25% 30 ML Vial (10:08)
--- NOTE | 2024-05-21 10:11 | OP.PCM_ITS ---
Problems Associated Problem List Diagnoses (1) Uterine fibroid: (2) Pelvic pain: (3) Enlarged uterus: Multi Select Codes Urinary/Genital Urinary/Genital CPT Codes: 54786 TLH+BS/O >250gr uterus Operative Report (Standard) Operative Information Date of Procedure: 05/21/24 Pre-Operative Diagnosis: enlarged fibroid uterus and pelvic pain Post-Operative Diagnosis: enlarged fibroid uterus and pelvic pain Surgery/Procedure Performed: total robotic hysterectomy, bilateral salpingectomy, cystoscopy carbide powder processor: Yes Marketing Communications Coordinator: Silvano Navarro Tasks completed by first aid trainer: Closing, Insert Trochanter and Retracting Additional aquatics assistant department head?: No Type of Anesthesia: General RN Documented Start/Stop Times: Operation Date: 05/21/24 07:30 Case Time Into Pre-Op 05/21/24 05:42 Out of Pre-Op 05/21/24 07:27 Anesthesia Start 05/21/24 07:29 Into Room 05/21/24 07:29 Procedure Start 05/21/24 08:01 Procedure End 05/21/24 10:19 Anesthesia End 05/21/24 10:24 Out of Room 05/21/24 10:24 Into Recovery 05/21/24 10:29 Into Phase II Recovery 05/21/24 11:17 Out of Recovery 05/21/24 11:17 Out of Phase II 05/21/24 12:38 Procedure Start Time: 08:01 Procedure Stop Time: 10:19 Select all DRAINS/GRAFTS/IMPLANTS that apply: None Estimated Blood Loss: 150cc Fluids Replaced: 1 liter Specimen collected: Yes Description of specimen(s) removed: uterus, cervix, fallopian tubes Description of surgery: Reason for surgery: This is a 43-year-old G0 who presented to my office with history of enlarged fibroid uterus back and pelvic pain. The planned procedure is for a robotic hysterectomy the risks benefits and alternatives were discussed with the patient the patient had a clear understanding of the procedure and a consent form was signed. Procedure: The patient was placed in the dorsal low lithotomy position and prepped and draped in the normal sterile fashion both abdominally and in the perineum. Her legs were placed in stirrups a Poole catheter was inserted into the urethra without difficulty. A weighted speculum was placed in the vagina and a single- tooth tenaculum was used to grasp the anterior lip of the cervix. An [employer] uterine manipulator was inserted through the cervix without complication. It was then tied into place at the 2 and 10:00 locations on the cervix. Gloves were changed and attention was turned towards the abdomen. Approximately 20 cm above the pubic symphysis in the midline, and after Marcaine injection, a 8 mm incision was made. An 8 mm trocar was inserted through the laparoscope, then inserted into the abdomen under direct visualization using the laparoscope. Good abdominal placement was noted and no complications were appreciated. An air seal device was utilized to create pneumoperitoneum. At 12 cm lateral to the midline on the left and right sides 8 mm accessory ports were placed. Next a left upper quadrant 8 mm aquatics assistant department head port site was placed. The patient was placed in steep Trendelenburg position. The robot was docked. The hysterectomy was initiated first by taking down the round ligament on each side using the vessel sealer device. The uterus was quite enlarged and was touching both sides of the pelvis. Manipulation was difficult. The broad ligament was then and taken down using the vessel sealer device. Next the bladder flap was taken down without complication. This was done using monopolar cautery to the level of the cervical vaginal junction. After the bladder flap was created, uterine vessels were then isolated and cauterized using the vessel sealer device and EndoShears. At this point the uterine vessels were taken down further starting from the ascending branch, dissecting along the edges of the cervix to the level of the cervical vaginal junction with hemostasis appreciated. The cervical vaginal junction was then using monopolar cautery in a circumferential pattern across the superior aspect of the cervix. The specimen was delivered through the vagina via vaginal morcellation of the fibroids and sent to pathology. The remaining vaginal cuff was then closed using a V lock suture. This was performed in a running technique. Excellent hemostasis was obtained and good closure was noted. Irrigation was then performed. All operative sites were noted to be hemostatic. A cystoscopy was performed with a 70 degree cystoscope through the urethra into the bladder without complication. The bladder was instilled with approximately 250 cc of normal saline. Intraoperative images were made. Ureteral orifices and jets were identified. No suture material was appreciated in the bladder. The bladder was then drained and cystoscope was removed. The abdominal cavity was again examined using the laparoscope after the robot was undocked. All operative sites were noted to be hemostatic. The trochars were removed under direct visualization without complication and pneumoperitoneum was reduced. At this point the skin was then closed using 4-0 Monocryl subcuticular stitch and sealed with surgical glue. The patient tolerated the procedure well sponge lap and needle counts were correct x2 the patient was taken to the recovery room in stable condition. Surgical Findings: Findings: 542 g uterus, normal appearing ovaries and tubes. On exploration of the abdominal cavity the uterus, adnexa, bowel, and liver were found to be normal. Cystoscopy showed no evidence of leaking at approximately 250 cc of normal saline, positive ureteral orifices and jet flow are seen and no suture material was appreciated in the bladder Complications Complications: No Admit VTE Documentation VTE Present on Admission: No VTE Mechan Device Prophylaxis: SCD's VTE Pharm Prophylaxis ordered?: No
--- NOTE | 2024-05-21 10:27 | PCM.POST.ANE ---
Anesthesia: Postop Eval I Current Vital Signs Temperature: 97.6 F Pulse Rate: 90 Blood Pressure: 116/57 Respiratory Rate: 18 Pulse Ox: 100 Oxygen Delivery Method: Room Air Assessment Airway patent: Yes Spontaneous unlabored respirations: Yes Mental status: Awake and Calm nausea: No Vomiting: No Anesthesia Complication: No Fluid Hydration Crystalloid volume administer (ml): 100 Total IV fluid infused: 100 Progress Note Anesthesia document: Postop Eval 1 completed: Yes
[2024-05-21] MEDS: Lactated Ringers @ 70 MLS/HR 70 ML IV (10:30)
[2024-05-21] MEDS: HYDROcodone Bitartrate/Apap 5/325 Tablet PO (11:52)
--- NOTE | 2024-05-21 19:19 | POSTOPAN2_ITS ---
Anesthesia Postop Eval I Sum Postop Eval Completion status Anesthesia document: Postop Eval 1 completed: Yes Anesthesia Postop Eval I Summary Anesthesia Postop Eval I Summary: Anesthesia Postop Eval I: Assessment Summary Airway patent Yes 05/21/24 10:29 MAINTENANCE MANAGER.[email or web address] Spontaneous unlabored Yes 05/21/24 10:29 MAINTENANCE MANAGER.ZUHAIR respirations Mental status Awake,Calm 05/21/24 10:29 MAINTENANCE MANAGER.SKOBY nausea No 05/21/24 10:29 MAINTENANCE MANAGER.SKOBSayra Vomiting No 05/21/24 10:29 MAINTENANCE MANAGER.JONNOBSayra Anesthesia Postop Eval I: Fluid Summary Crystalloid volume administer 100 05/21/24 10:29 MAINTENANCE MANAGER.SKOBY (ml) Colloids volume administered ( ml) Blood Product volume administered (ml) Total IV fluid infused 100 05/21/24 10:29 MAINTENANCE MANAGER.JONNOBSayra Anesthesia Postop Eval I: Summary Notes Anesthesia Complication No 05/21/24 10:29 MAINTENANCE MANAGER.ZUHAIR Anesthesia Complication Comment: Post-operative progress note Anesthesia: Postop Eval II Evaluation Mental status: Awake and Calm Pain Level: 1 nausea: No Vomiting: No Complications Anesthesia Complication: No
--- NOTE | 2024-05-21 19:19 | PCM.POSTANE2 ---
Anesthesia Postop Eval I Sum Postop Eval Completion status Anesthesia document: Postop Eval 1 completed: Yes Anesthesia Postop Eval I Summary Anesthesia Postop Eval I Summary: Anesthesia Postop Eval I: Assessment Summary Airway patent Yes 05/21/24 10:29 [facility] [email or web address] Spontaneous unlabored Yes 05/21/24 10:29 [email or web address] respirations Mental status Awake,Calm 05/21/24 10:29 [email or web address] nausea No 05/21/24 10:29 [email or web address] Vomiting No 05/21/24 10:29 [email or web address].[email or web address] Anesthesia Postop Eval I: Fluid Summary Crystalloid volume administer 100 05/21/24 10:29 [email or web address] (ml) Colloids volume administered ( ml) Blood Product volume administered (ml) Total IV fluid infused 100 05/21/24 10:29 [email or web address].[email or web address] Anesthesia Postop Eval I: Summary Notes Anesthesia Complication No 05/21/24 10:29 [email or web address] Anesthesia Complication Comment: Post-operative progress note Anesthesia: Postop Eval II Evaluation Mental status: Awake and Calm Pain Level: 1 nausea: No Vomiting: No Complications Anesthesia Complication: No
== END 2024-05-21 12:38 | disposition home or self-care (01) ==
LOC: SDC 05:27 → AC 05:27
PROVIDERS: PCP Family Medicine; Referring Provider Obstetrics & Gynecology; Visit Provider Obstetrics & Gynecology
PROC: 0UT90ZZ Resection of Uterus, Open Approach (ICD-10-PCS; CPT 58573; principal; 2024-05-21 07:10)
DX: D26.1 Other benign neoplasm of corpus uteri (principal); F17.210 Nicotine dependence, cigarettes, uncomplicated; N88.0 Leukoplakia of cervix uteri
CPT/HCPCS: 58573; S2900; 00840; 36415; 81025; 82962; 83735; 85027; 86850; 86900; 86901; 88307; 93005; A4216; J2405; J3475